=== PATIENT | female | born 1975 | race Two or more races ===

== ENCOUNTER 2019-04-25 13:40 | Emergency (ER) | payer SELFPAY ==
[~2019-04-25] VITALS: Ht 172.7 cm; Wt 113.6 kg
[2019-04-25] MEDS ORDERED: VENL25TA47 PO (13:48)
[2019-04-25] MEDS ORDERED: SODIUM CHLORIDE 0.9% 1,000 ML IV ONE (15:15)
[2019-04-25] MEDS ORDERED: ONDANSETRON HCL 4 MG/2 ML VIAL IVP ONE (15:15)
[2019-04-25] MEDS ORDERED: ONDANSETRON HCL 4 MG TABLET PO ONE (16:15)
[2019-04-25] MEDS ORDERED: ACETAMINOPHEN 500 MG TABLET PO ONE (16:30)
[2019-04-25 16:36] VITALS: BP 150/97
== END 2019-04-25 17:19 | disposition home or self-care (01) ==
LOC: EMS 13:43
DX: F10.129 Alcohol abuse with intoxication, unspecified (principal); R11.2 Nausea with vomiting, unspecified; F32.9 Major depressive disorder, single episode, unspecified; Z79.899 Other long term (current) drug therapy; Y90.0 Blood alcohol level of less than 20 mg/100 ml
CPT/HCPCS: 99283; J2405; J7030; Q0162